=== PATIENT | male | born 1940 | race Caucasian/White ===

== ENCOUNTER 2019-11-10 16:11 | Inpatient (IN) | payer OTHER, SELFPAY ==
[2019-11-10] VITALS (41 sets, daily range): BP systolic 85–136; BP diastolic 52–101; PULSE 130–166; RESP 14–36; TEMP 36.1–36.8; O2SAT 91–100; BMI 24.7
--- NOTE | 2019-11-10 16:15 | DI.RAD.S_ITS ---
PROCEDURE: XR CHEST 1V INDICATIONS: chest pain TECHNIQUE: One view of the chest was acquired. COMPARISON: [facility], , CHEST 2 VIEW, 09/21/2011, 10:36. FINDINGS: Surgical changes and devices: None. Lungs and pleura: Increase opacity in right lower lung field is seen, concerning for developing right lower lobe infiltrate. Left lung is clear. No pleural effusions or pneumothorax. Mediastinum: Mediastinal contours appear normal. Heart size is enlarged. Bones and chest wall: No suspicious bony lesions. Overlying soft tissues appear unremarkable. IMPRESSION: Finding is concerning for developing small right lower lobe infiltrate. No pleural effusion or pneumothorax. Dictated by: Panchito Gunderson M.D. on 11/10/2019 at 16:50 Approved by: Panchito Gunderson M.D. on 11/10/2019 at 16:51
--- NOTE | 2019-11-10 16:20 | ED.ARRPALP ---
HPI - Arrhythmia/Palpitations General Chief Complaint: Arrhythmia/Palpitations Stated Complaint: AFIB Time Seen by Provider: 11/10/19 16:20 Source: patient Mode of arrival: Ambulatory Limitations: no limitations History of Present Illness HPI narrative: The patient is a 79-year-old male with history of atrial fibrillation presenting with shortness of breath and what appears to be AFib with RVR on the monitor. He said he has been feeling short of breath for last few days it seems to be mostly with activity. He has also noticed the last night or to that he is unable to lay flat in his bed. He denies any swelling in his legs he has no chest pain or heart patient's. He does take metoprolol twice a day an aspirin daily he has trying to transition to Eliquis but is resistant to Eliquis because it makes him bleed. Related Data Home Medications Medication Instructions Recorded Confirmed OMEPRAZOLE 20 mg PO QDAY #0 06/04/11 Allergies Allergy/AdvReac Type Severity Reaction Status Date / Time aspirin Allergy Verified 11/10/19 16:16 niacin Allergy Verified 11/10/19 16:16 Penicillins Allergy Verified 11/10/19 16:16 Review of Systems Review of Systems ROS Unobtainable: All systems reviewed & are unremarkable except as noted in HPI and below Constitutional Constitutional: Denies chills, Denies fever(s), Denies lethargy and Denies weakness Eyes Eyes: Denies change in vision, Denies eye discharge, Denies irritation and Denies loss of vision Cardiovascular Cardiovascular: Denies chest pain, Reports rapid heart rate, Denies claudication, Denies leg edema, Denies lightheadedness, Reports dyspnea and Reports dyspnea on exertion Respiratory Respiratory: Reports as per HPI, Denies cough, Reports dyspnea and Reports dyspnea on exertion Gastrointestinal Gastrointestinal: Denies abdominal pain, Denies change in bowel habits, Denies diarrhea, Denies nausea and Denies vomiting Musculoskeletal Musculoskeletal: Denies back pain, Denies deformity and Denies numbness Integumentary/Breasts Skin/Breast: Denies pruritus, Denies erythema, Denies rash and Denies wounds Neurologic Neurologic: Denies loss of vision, Denies numbness and Denies weakness Patient History Medical History Atrial fibrillation (Acute) Exam Initial Vital Signs Initial Vital Signs: Vital Signs Temperature 97.3 F L 11/10/19 16:16 Pulse Rate 155 H 11/10/19 16:16 Respiratory Rate 20 11/10/19 16:16 Blood Pressure 111/88 11/10/19 16:16 Pulse Oximetry 98 11/10/19 16:16 GENERAL: Alert male appears younger than stated age HEENT: Head atraumatic,EOMI, pupils reactive, face symmetric CARDIOVASCULAR: Tachycardic irregular RESPIRATORY: Breath sounds equal bilaterally, no wheezes rales or rhonchi. ABDOMEN: Soft, nontender. Normoactive bowel sounds all 4 quadrants. No guarding or rebound. EXTREMITIES: Normal range of motion, no clubbing or edema. Neurovascularly intact NEUROLOGICAL: Alert and oriented x4.Normal gait and speech. SKIN: Warm, dry, no laceration, no petechiae, no rashes or lesions. Course Orders Ordered: ED Orders 11/10/19 16:15 XR chest 1V Stat EKG-12 Lead Stat 11/10/19 16:21 BNP [NT-proBNP (BNP-Adult 18+)] Stat Complete Blood Count AUTO DIFF Stat Comprehensive Metabolic Panel Stat Lipase Stat Partial Thromboplastin Time Stat Prothrombin Time INR Stat Troponin & CK Cardiac Panel Stat 11/10/19 19:14 Partial Thromboplastin Time Stat 11/11/19 01:00 PTT [Partial Thromboplastin Time] Q6H 11/11/19 05:00 Hemoglobin and Hematocrit DAILY 11/11/19 07:00 PTT [Partial Thromboplastin Time] Q6H 11/11/19 13:00 PTT [Partial Thromboplastin Time] Q6H Amiodarone HCl/Dextrose (Nexterone) 360 mg in 200 mls @ 33.333 mls/hr IV NOW ONE; Protocol Stop: 11/11/19 01:15 Amiodarone HCl/Dextrose (Nexterone) 541 mg in 300.56 mls @ 16.7 mls/hr IV CONT CHERRY; Protocol Stop: 12/11/19 13:30 Discontinued Medications Digoxin (Lanoxin) 250 mcg IV NOW ONE Stop: 11/10/19 17:54 Last Admin: 11/10/19 18:04 Dose: 250 mcg Documented by: SAUL Diltiazem HCl (Cardizem) 10 mg IV NOW ONE Stop: 11/10/19 16:27 Last Admin: 11/10/19 16:52 Dose: 10 mg Documented by: ZACARIAS Furosemide (Lasix) 40 mg IV NOW ONE Stop: 11/10/19 17:23 Last Admin: 11/10/19 17:37 Dose: 40 mg Documented by: SAUL Heparin Sodium (Porcine) (Heparin) 5,700 unit 80 unit/kg (5700 unit) IV NOW ONE Stop: 11/10/19 18:57 Last Admin: 11/10/19 19:15 Dose: 5,700 unit Documented by: SAUL Amiodarone HCl/Dextrose (Nexterone) 150 mg in 100 mls @ 600 mls/hr IV NOW ONE; Protocol Stop: 11/10/19 19:03 Last Admin: 11/10/19 19:07 Dose: 200 mls/hr Documented by: SAUL Metoprolol Tartrate (Lopressor) 5 mg IV NOW ONE Stop: 11/10/19 16:58 Last Admin: 11/10/19 17:32 Dose: 5 mg Documented by: SAUL Consultations Consultation #1: Dr. Monge, cardiology updated patient's symptoms and test results this time recommends loading with amiodarone 150 mg and then drip for 24 hours along with a heparin drip patient is at risk for stroke. Time: 18:50 Consultation #2: Dr. Calix, updated on patient's symptoms test results cardiology recommendation agrees with admission to the ICU here at [facility] Time: 19:00 Vital Signs Vital signs: Vital Signs - 8 hr 11/10/19 16:16 11/10/19 16:25 11/10/19 16:30 Temperature 97.3 F L Pulse Rate 155 H 162 H 149 H Respiratory Rate 20 24 22 Blood Pressure 111/88 118/91 H Pulse Oximetry 98 98 96 11/10/19 16:45 11/10/19 16:52 11/10/19 16:53 Temperature Pulse Rate 160 H 166 H 164 H Respiratory Rate 26 H 26 H Blood Pressure 116/84 116/84 Pulse Oximetry 96 94 11/10/19 17:00 11/10/19 17:02 11/10/19 17:12 Temperature Pulse Rate 159 H 155 H 147 H Respiratory Rate 22 26 H 27 H Blood Pressure 91/61 89/68 L Pulse Oximetry 95 91 93 11/10/19 17:15 11/10/19 17:30 11/10/19 17:31 Temperature Pulse Rate 152 H 146 H 153 H Respiratory Rate 23 20 24 Blood Pressure 118/58 L Pulse Oximetry 92 94 92 11/10/19 17:42 11/10/19 17:45 11/10/19 17:50 Temperature Pulse Rate 146 H 145 H 135 H Respiratory Rate 24 26 H 24 Blood Pressure 110/69 92/62 Pulse Oximetry 93 95 93 11/10/19 18:00 11/10/19 18:04 11/10/19 18:10 Temperature Pulse Rate 144 H 145 H 141 H Respiratory Rate 23 30 H Blood Pressure 97/73 97/73 104/75 Pulse Oximetry 95 95 11/10/19 18:15 11/10/19 18:21 11/10/19 18:30 Temperature Pulse Rate 143 H 147 H 151 H Respiratory Rate 25 H 26 H 25 H Blood Pressure 103/82 107/87 Pulse Oximetry 95 96 96 11/10/19 18:42 11/10/19 18:45 11/10/19 18:51 Temperature Pulse Rate 159 H 154 H 154 H Respiratory Rate 20 27 H 26 H Blood Pressure 117/94 H 105/84 Pulse Oximetry 96 95 95 11/10/19 19:00 11/10/19 19:11 11/10/19 19:15 Temperature Pulse Rate 146 H 147 H 144 H Respiratory Rate 29 H 26 H 25 H Blood Pressure 116/88 136/92 H Pulse Oximetry 96 96 96 MDM - Arrhythmia/Palpitations Lab Data Attestation: I reviewed the patient's lab results. Result diagrams: 11/10/19 16:21 11/10/19 16:21 Labs: Lab Results 11/10/19 11/10/19 11/10/19 Range/Units 16:21 16:21 16:21 WBC 8.7 (4.5-11.0) X10^3/uL RBC 4.75 (4.5-5.9) X10^6/uL Hgb 15.4 (13.5-17.5) g/dL Hct 46.4 (41-53) % MCV 97.7 (80-100) fL MCH 32.3 (26-34) PG MCHC 33.1 (30-36) % RDW 12.7 (11.6-14.8) % Plt Count 263 (150-400) X10^3/uL Neut % (Auto) 66.8 (50-75) % Lymph % (Auto) 17.9 L (25-40) % [place] % (Auto) 11.2 (3-14) % Eos % (Auto) 2.7 (2-4) % Baso % (Auto) 1.4 (0-2) % Neut # (Auto) 5800 (6897-7901) /uL Lymph # (Auto) 1600 (4978-9819) /uL [place] # (Auto) 1000 H (0-900) /uL Eos # (Auto) 200 (0-450) /uL Baso # (Auto) 100 (0-100) /uL PT 12.2 (10.1-12.7) SECONDS INR 1.1 (0.9-1.3) APTT 31 (26.4-36.2) SECONDS Sodium 137 (137-145) mmol/L Potassium 4.1 (3.4-5.1) mmol/L Chloride 103 (98-107) mmol/L Carbon Dioxide 25 (22-32) mmol/L BUN 27 H (9-20) mg/dL Creatinine 1.08 (0.66-1.25) mg/dL Estimated GFR > 60.0 (>60) mL/min BUN/Creatinine Ratio 25.0 H (6-22) Glucose 88 (80-110) mg/dL Calcium 9.2 (8.4-10.2) mg/dL Total Bilirubin 0.7 (0.2-1.3) mg/dL AST 48 (17-59) IU/L ALT 78 H (<50) IU/L Alkaline Phosphatase 76 (38-126) U/L Total Creatine Kinase 96 (55-170) U/L CK-MB (CK-2) TNP CK-MB (CK-2) Rel Index TNP Troponin I < 0.012 (0.01-0.034) ng/mL NT-Pro-B Natriuret Pep 3690 H (<450) pg/mL Total Protein 7.0 (6.3-8.2) g/dL Albumin 4.1 (3.5-5.0) g/dL Globulin 2.9 (1.7-4.1) g/dL Albumin/Globulin Ratio 1.4 (1.0-2.8) Lipase 66 (23-300) U/L Urine Dip Bedside Urine Glucose Negative Bedside Urine Bilirubin - Negative Bedside Urine Ketone - Negative Urine Specific [place] 1.020 Bedside Urine Occult Blood - Negative Bedside Urine pH 6.0 Bedside Urine Protein - Negative Bedside Urine Urobilinogen - Negative Bedside Urine Nitrite - Negative Bedside Urine Leukocytes - Negative Esterase Imaging Data Chest x-ray: Radiologist's Impresson: PROCEDURE: XR CHEST 1V INDICATIONS: chest pain TECHNIQUE: One view of the chest was acquired. COMPARISON: [facility], CHEST 2 VIEW, 09/21/2011, 10:36. FINDINGS: Surgical changes and devices: None. Lungs and pleura: Increase opacity in right lower lung field is seen, concerning for developing right lower lobe infiltrate. Left lung is clear. No pleural effusions or pneumothorax. Mediastinum: Mediastinal contours appear normal. Heart size is enlarged. Bones and chest wall: No suspicious bony lesions. Overlying soft tissues appear unremarkable. IMPRESSION: Finding is concerning for developing small right lower lobe infiltrate. No pleural effusion or pneumothorax. Dictated by: Panchito Gunderson M.D. on 11/10/2019 at 16:50 Approved by: Panchito Gunderson M.D. on 11/10/2019 at 16:5 ECG Data Attestation: I personally reviewed and interpreted this ECG as follows: Prior ECG tracings: available for review Interpretation: Atrial fibrillation rate [address] changes previous EKG show sinus rhythm MDM Narrative Medical decision making narrative: The patient initially given Cardizem 10 mg of blood pressure dropped to systolic of 89 without improvement in the heart rate. With time blood pressure improved he was given 2.5 mg of Lopressor along with Lasix. BNP is quite elevated symptoms consistent with congestive heart failure. Blood pressure again dropped to systolic in the 90s heart rate initially response to 109 however quickly increases again. He is loaded with digoxin of 250 micro g of blood pressure is stable heart rate continues to be consistently in the 140s. Amiodarone loading dose has been started per cardiology recommendations. He has urinated with Lasix. Heart rate is use better and the 120s to 130s but still increases to the 140s after the amiodarone bolus. The amiodarone drip has been ordered. Patient overall appears great alert and oriented we have discussed anticoagulation options and risk of stroke. At this time he is more agreeable to take Eliquis. Critical Care Time Critical Care Time Critical Care Time: Yes Total Critical Care Time: 30 Attestation: The high probability of a clinically significant, sudden or life threatening deterioration of the [cardiovascular] system(s) required my full and direct attention, intervention and personal management. The aggregate critical care time was 30 minutes. This time is in addition to time spent performing reported procedures but includes the following: [x] Data Review and interpretation [x] Patient assessment and monitoring of vital signs [x] Documentation [x] Medication orders and management Discharge Plan Departure Patient Disposition: Admitted As Inpatient Clinical Impression: Atrial fibrillation with RVR Congestive heart failure Qualifiers: Heart failure type: unspecified Heart failure chronicity: unspecified Qualified Code(s): I50.9 - Heart failure, unspecified Referrals: Ryan Fragoso MD [Primary Care Provider] -
[2019-11-10 16:28] LABS: Add Manual Diff / Slide Review NO; Basophils Absolute Auto 100 /uL (0-100); Basophils Percent Auto 1.4 % (0-2); Eosinophils Absolute Auto 200 /uL (0-450); Eosinophils Percent Auto 2.7 % (2-4); Hematocrit 46.4 % (41-53); Hemoglobin 15.4 g/dL (13.5-17.5); Lymphocytes Absolute Auto 1600 /uL (1100-4500); Lymphocytes Percent Auto 17.9 % (25-40); Mean Corpuscular HGB Conc 33.1 % (30-36); Mean Corpuscular Hemoglobin 32.3 PG (26-34); Mean Corpuscular Volume 97.7 fL (80-100); Monocytes Absolute Auto 1000 /uL (0-900); Monocytes Percent Auto 11.2 % (3-14); Neutrophils Absolute Auto 5800 /uL (1500-7000); Neutrophils Percent Auto 66.8 % (50-75); Platelet Count 263 X10^3/uL (150-400); Red Blood Cell Count 4.75 X10^6/uL (4.5-5.9); Red Cell Distribution Width 12.7 % (11.6-14.8); White Blood Cell Count 8.7 X10^3/uL (4.5-11.0)
[2019-11-10 16:39] LABS: INR 1.1 (0.9-1.3); Prothrombin Time 12.2 SECONDS (10.1-12.7)
[2019-11-10 16:41] LABS: PTT Partial Thromboplastin Tim 31 SECONDS (26.4-36.2)
[2019-11-10 16:50] LABS: Alanine Aminotransferase 78 IU/L (<50); Albumin 4.1 g/dL (3.5-5.0); Albumin Globulin Ratio 1.4 (1.0-2.8); Alkaline Phosphatase 76 U/L (38-126); Aspartate Aminotransferase 48 IU/L (17-59); Bilirubin Total 0.7 mg/dL (0.2-1.3); Blood Urea Nitrogen 27 mg/dL (9-20); Calcium 9.2 mg/dL (8.4-10.2); Carbon Dioxide 25 mmol/L (22-32); Chloride 103 mmol/L (98-107); Creatine Kinase 96 U/L (55-170); Estimated Glomerular Filt Rate > 60.0 mL/min (>60); Globulin 2.9 g/dL (1.7-4.1); Glucose 88 mg/dL (80-110); HEMOLYSIS < 15 (0-50); Lipase 66 U/L (23-300); Potassium 4.1 mmol/L (3.4-5.1); Sodium 137 mmol/L (137-145)
[2019-11-10] MEDS: dilTIAZem 5 MG/ML SDV 10 MG IV (16:52)
[2019-11-10 17:02] LABS: NT-proBNP (BNP-Adult 18+) 3690 pg/mL (<450); Troponin I < 0.012 ng/mL (0.01-0.034)
[2019-11-10] MEDS: METOPROLOL TARTRATE 5 MG/5 ML INJ IV (17:32)
[2019-11-10] MEDS: FUROSEMIDE 40 MG/4 ML VIAL IV (17:37)
[2019-11-10] MEDS: DIGOXIN 500 MCG/2 ML AMPUL 250 MCG IV (18:04)
--- NOTE | 2019-11-10 18:17 | PC.NURSE ---
Metoprolol 5 mg IV to be given in 2 each [address] Cameron. First dose administered, second dose held for hypotension per Dr Cameron.
[2019-11-10] MEDS: AMIODARONE 150 MG/100 ML PIGGYBACK 200 MG IV (19:07)
[2019-11-10] MEDS: HEPARIN 5,000 UNIT/ML VIAL 5700 UNIT IV (19:15)
[2019-11-10 19:50] LABS: PTT Partial Thromboplastin Tim 30 SECONDS (26.4-36.2)
[2019-11-10] MEDS: AMIODARONE 541 MG/300.56 ML PIGGYBACK 33.3 MG IV (19:50)
[2019-11-10] MEDS: HEPARIN DRIP 25,000 UNIT/500 ML IV.SOLN 20 UNIT IV (19:56)
[2019-11-10] MEDS: AMIODARONE 360 MG/200 ML PIGGYBACK 33.33 MG IV (19:58)
[2019-11-10 21:07] LABS: COVID19 -Nasal RAPID Negative (Negative)
--- NOTE | 2019-11-10 21:45 | P.HP_ITS ---
History of Present Illness History of Present Illness Date Patient Seen: 11/10/19 Time Patient Seen: 21:45 Date of Onset of Symptoms: 11/10/19 Chief complaint: AFIB Narrative: Patient is a 79-year-old who I am cross covering for Dr. Kenney who she has seen in clinic. No major issues up until about 4-5 days ago. Last week he built and extensive stair we going down to his beach. Caring would and feeling quite well. He has been playing golf and walking on a consistent basis at least 2 times a week. Has had no issues whatsoever. He states that he checks his blood pressure and his pulse in the morning every morning and he is been stable for the last month. He has had no issues he feels since May until 3 days ago when he started having increasing shortness of breath. Really during the day he has been feeling well. He mowed the lawn in these 3 days. He has been doing work around the house. His biggest issue is when he lays down. Is since he lays down he starts getting significantly short of breath. He has been having to get up in the middle the night and sleep sitting up. He has not had any chest pain. He really has no idea that his heart rate is been increased period and did know that was happening until he showed up in the emergency room was told his heart rate was elevated. He never felt it whatsoever. Did state that he felt like his heart rate was in the 50s this morning. Apparently he has been taking Eliquis on a consistent basis which he thinks is the lowest amount period but then he reported to the Emergency DrMita that he was not taking it only taking aspirin. Dr. Kenney does not have him taking that in the clinic. Patient does not take most of the medicines that he is prescribed except for occasional Ambien metoprolol and an antihistamine. Patient otherwise has been feeling well. He has been a little itchy apparently ends had a rash for a few weeks and was started on antihistamine recently which to he does not feels made a difference and he feels maybe that it caused a rash. He has not had any chest pain. No dyspnea with exertion period and otherwise is felt quite well. He has had no fevers or chills. No headaches. No visual symptoms. If it was not for his symptoms at night he really would not feel any different than he usually does. He is not sure if he has gained any weight. He has had no edema. He has had no urinary changes cough or other change. Patient has a history of atrial fibrillation which is apparently been longstanding. Apparently he was to have a catheter in June because of a questionable abnormality on his treadmill which he had in May but due to [place] it he was canceled. Has felt great since that time. 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 Otherwise no change or complaint. Patient has been having some muscle cramps but otherwise has felt well. Past medical history is significant for atrial fibrillation, hyperlipidemia, aortic stenosis, Past surgical history: Prostatectomy 2005, cataract right 2008, retinal detachment left 2010, right shoulder surgery for 2010, right hand surgery 116, corneal transplant left 06/24. Social history. 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 Nonsmoker. Family history. Father AAA, mother no major issues, Patient History Medical History Atrial fibrillation (Acute) Family & Social History Social History: household members none Prior Living Arrangements House Safety & Behavioral: Feels Safe in Current Yes Environment Been Physically Hurt or No Threatened By a Person Suicidal Ideation Description None Suicide Plan Description No Plan Tobacco & Substance use: Smoking Status Never smoker alcohol intake frequency holiday/special occasion Substance Use Type does not use Meds Home Medications and Allergies Home Medications Medication Instructions Recorded Confirmed Type OMEPRAZOLE 20 mg PO QDAY #0 06/04/11 History Allergies Allergy/AdvReac Type Severity Reaction Status Date / Time aspirin Allergy Verified 11/10/19 16:16 niacin Allergy Verified 11/10/19 16:16 Penicillins Allergy Verified 11/10/19 16:16 Review of Systems Review of Systems ROS: Yes All systems reviewed with the patient and are negative except as otherwise documented Exam Vital Signs (past 8 hours): - 11/10/19 16:16 11/10/19 16:25 11/10/19 16:30 Temperature 97.3 F L Pulse Rate 155 H 162 H 149 H Respiratory Rate 20 24 22 Blood Pressure 111/88 118/91 H Pulse Oximetry 98 98 96 11/10/19 16:45 11/10/19 16:52 11/10/19 16:53 Temperature Pulse Rate 160 H 166 H 164 H Respiratory Rate 26 H 26 H Blood Pressure 116/84 116/84 Pulse Oximetry 96 94 11/10/19 17:00 11/10/19 17:02 11/10/19 17:12 Temperature Pulse Rate 159 H 155 H 147 H Respiratory Rate 22 26 H 27 H Blood Pressure 91/61 89/68 L Pulse Oximetry 95 91 93 11/10/19 17:15 11/10/19 17:30 11/10/19 17:31 Temperature Pulse Rate 152 H 146 H 153 H Respiratory Rate 23 20 24 Blood Pressure 118/58 L Pulse Oximetry 92 94 92 11/10/19 17:42 11/10/19 17:45 11/10/19 17:50 Temperature Pulse Rate 146 H 145 H 135 H Respiratory Rate 24 26 H 24 Blood Pressure 110/69 92/62 Pulse Oximetry 93 95 93 11/10/19 18:00 11/10/19 18:04 11/10/19 18:10 Temperature Pulse Rate 144 H 145 H 141 H Respiratory Rate 23 30 H Blood Pressure 97/73 97/73 104/75 Pulse Oximetry 95 95 11/10/19 18:15 11/10/19 18:21 11/10/19 18:30 Temperature Pulse Rate 143 H 147 H 151 H Respiratory Rate 25 H 26 H 25 H Blood Pressure 103/82 107/87 Pulse Oximetry 95 96 96 11/10/19 18:42 11/10/19 18:45 11/10/19 18:51 Temperature Pulse Rate 159 H 154 H 154 H Respiratory Rate 20 27 H 26 H Blood Pressure 117/94 H 105/84 Pulse Oximetry 96 95 95 11/10/19 19:00 11/10/19 19:11 11/10/19 19:15 Temperature Pulse Rate 146 H 147 H 144 H Respiratory Rate 29 H 26 H 25 H Blood Pressure 116/88 136/92 H Pulse Oximetry 96 96 96 11/10/19 19:30 11/10/19 19:31 11/10/19 19:41 Temperature Pulse Rate 142 H 137 H 137 H Respiratory Rate 36 H 27 H 29 H Blood Pressure 117/101 H 102/87 Pulse Oximetry 96 97 95 11/10/19 19:45 11/10/19 19:51 11/10/19 20:00 Temperature Pulse Rate 130 H 139 H 141 H Respiratory Rate 28 H 24 27 H Blood Pressure 85/53 L 113/75 Pulse Oximetry 96 93 96 11/10/19 20:15 11/10/19 20:50 Temperature 97 F L Pulse Rate 143 H 142 H Respiratory Rate 23 18 Blood Pressure 106/68 Pulse Oximetry 93 100 Oxygen Delivery Method Room Air Narrative Exam Narrative: Alert interactive smiling elderly male in no acute distress. Mucous membranes moist. Eyes PERRLA. Neck supple without adenopathy JVD or bruits. Lungs are clear. Heart irregular rhythm rate 130. No murmurs that I can detect. Abdomen is soft positive bowel sounds nontender. Extremities w ithout cyanosis clubbing or edema. Pulses seemed good in the lower extremities they are warm. Neurologic exam shows reflexes motor and sensation all intact. Psychologically interactive appropriate and normal Objective Labs Result Diagrams: 11/10/19 16:21 11/10/19 16:21 Labs: Laboratory Results - last 24 hr 11/10/19 11/10/19 11/10/19 16:21 16:21 16:21 WBC 8.7 RBC 4.75 Hgb 15.4 Hct 46.4 MCV 97.7 MCH 32.3 MCHC 33.1 RDW 12.7 Plt Count 263 Neut % (Auto) 66.8 Lymph % (Auto) 17.9 L [place] % (Auto) 11.2 Eos % (Auto) 2.7 Baso % (Auto) 1.4 Neut # (Auto) 5800 Lymph # (Auto) 1600 [place] # (Auto) 1000 H Eos # (Auto) 200 Baso # (Auto) 100 PT 12.2 INR 1.1 APTT 31 Sodium 137 Potassium 4.1 Chloride 103 Carbon Dioxide 25 BUN 27 H Creatinine 1.08 Estimated GFR > 60.0 BUN/Creatinine Ratio 25.0 H Glucose 88 Calcium 9.2 Total Bilirubin 0.7 AST 48 ALT 78 H Alkaline Phosphatase 76 Total Creatine Kinase 96 CK-MB (CK-2) TNP CK-MB (CK-2) Rel Index TNP Troponin I < 0.012 NT-Pro-B Natriuret Pep 3690 H Total Protein 7.0 Albumin 4.1 Globulin 2.9 Albumin/Globulin Ratio 1.4 Lipase 66 COVID-19 PCR 11/10/19 11/10/19 19:14 20:00 WBC RBC Hgb Hct MCV MCH MCHC RDW Plt Count Neut % (Auto) Lymph % (Auto) [place] % (Auto) Eos % (Auto) Baso % (Auto) Neut # (Auto) Lymph # (Auto) [place] # (Auto) Eos # (Auto) Baso # (Auto) PT INR APTT 30 Sodium Potassium Chloride Carbon Dioxide BUN Creatinine Estimated GFR BUN/Creatinine Ratio Glucose Calcium Total Bilirubin AST ALT Alkaline Phosphatase Total Creatine Kinase CK-MB (CK-2) CK-MB (CK-2) Rel Index Troponin I NT-Pro-B Natriuret Pep Total Protein Albumin Globulin Albumin/Globulin Ratio Lipase COVID-19 PCR Negative Assessment & Plan Assessment & Plan narrative: Congestive heart failure left heart suspect secondary to rate from atrial fibrillation. Hopefully will resolve as heart rate improves. Patient was given Lasix in the ER and remarkably feeling better since that time. Can now lay down. Feeling like his normal self. Will repeat Lasix in a.m. IV. Will need to re-evaluate for possible at the go. Probably will need Cardiology consult. Have been having difficulty getting heart rate in control. Patient understands. Will follow in a.m.. Atrial fibrillation. With RVR. No other significant abnormality. No evidence of infection etiology in causes issue. No evidence of ischemic disease on EKG. EKG showed AFib with RVR right bundle-branch block but no definitive ischemic disease. He is having no chest pain. And at this point I think he seems to be tolerating except for his congestive heart failure aspect which is now improved. Unclear whether patient has been taking Eliquis done a consistent basis he certainly feels like he has been and I tend to believe him but we do not have any documentation on dose. He is currently on amiodarone because Cardizem and beta-ijeoma structures blood pressure. Hopefully this will control rate. Logistics Analytics Manager has been contacted. Depending on how things go will probably need consult in the morning. If not improved will need to consider cardioversion although it is unclear whether he has been effectively anticoagulated. He is now on heparin. Overall otherwise stable. Re-evaluate in a.m.. Leg cramps. Etiology somewhat unclear. Could be multiple causes will check magnesium and calcium. Otherwise electrolytes look unremarkable. Will give anti a spasm medicine depending on results. History of abnormal chest x-ray. Question of right lower lobe infiltrate will repeat chest x-ray tomorrow. Certainly has no signs or symptoms of pneumonia. [place] id pending. Suspect will be negative. But will follow through and continue parameters until negative. GI prophylaxis will continue on pantoprazole for now. Code status. Patient would like full code. Disposition. Wall depending on how quickly and rapidly we get this controlled. He otherwise looks good. Will follow.
--- NOTE | 2019-11-10 23:33 | PC.NURSE ---
Addendum entered by Bettina Cano R.N. 11/11/19 02:36: 0230 Heparin gtt restarted at 17mL/hr (26316 units/hr), pt resting in bed with eyes closed, call light within reach, no further needs at this time. Will continue to treat and monitor as ordered until report is giving to on-coming Nurse Essie, with no further pt contact at that time. Addendum entered by Bettina Cano R.N. 11/11/19 01:40: Critical value PTT 113, Heparin gtt placed on hold for 60 minutes per protocol, resume Heparin gtt at 17 ml/hr (94699 units/hr). Next PTT to be drawn at 0700. No s/s of bleeding, pt tolerating gtt. Bed low and locked, call light within reach, will continue to monitor. Original Note: 2049 Pt arrived via gurney from ED, A/Ox4 Heart rate at 145, AFib with RVR pt notes no symptoms. Amiodarone gtt infusing at 33.3mL/hr started at 1950, Heparin gtt infusing at 20 units/hr for at PTT of 30. Dr. Calix at bedside, new orders placed. Pt oriented to room and call light system, food provided (heart healthy diet), urinal provided pt educated that at this time he will not be able to get out of bed to go to the restroom, pt states he understands. Bed low and locked, call light within reach, will continue to monitor.
[2019-11-11] VITALS (23 sets, daily range): BP systolic 87–140; BP diastolic 60–93; PULSE 115–144; RESP 10–29; TEMP 36.2–36.5; O2SAT 94–99; BMI 23.5
[2019-11-11] MEDS: AMIODARONE 541 MG/300.56 ML PIGGYBACK 16.7 MG IV (01:17)
[2019-11-11] MEDS: ZOLPIDEM 5 MG TABLET PO (01:23)
[2019-11-11 01:27] LABS: PTT Partial Thromboplastin Tim 113 SECONDS (26.4-36.2)
[2019-11-11 06:38] LABS: Add Manual Diff / Slide Review NO; Basophils Absolute Auto 100 /uL (0-100); Basophils Percent Auto 1.3 % (0-2); Eosinophils Absolute Auto 400 /uL (0-450); Eosinophils Percent Auto 4.5 % (2-4); Hemoglobin 14.7 g/dL (13.5-17.5); Lymphocytes Absolute Auto 2000 /uL (1100-4500); Lymphocytes Percent Auto 24.1 % (25-40); Mean Corpuscular HGB Conc 33.4 % (30-36); Mean Corpuscular Hemoglobin 32.4 PG (26-34); Mean Corpuscular Volume 96.9 fL (80-100); Monocytes Absolute Auto 800 /uL (0-900); Monocytes Percent Auto 9.7 % (3-14); Neutrophils Absolute Auto 4900 /uL (1500-7000); Neutrophils Percent Auto 60.4 % (50-75); Platelet Count 211 X10^3/uL (150-400); Red Blood Cell Count 4.53 X10^6/uL (4.5-5.9); Red Cell Distribution Width 12.7 % (11.6-14.8); White Blood Cell Count 8.2 X10^3/uL (4.5-11.0)
[2019-11-11 06:44] LABS: BUN Creatinine Ratio 20.5 (6-22); Blood Urea Nitrogen 25 mg/dL (9-20); Calcium 8.9 mg/dL (8.4-10.2); Carbon Dioxide 25 mmol/L (22-32); Chloride 102 mmol/L (98-107); Estimated Glomerular Filt Rate 57.4 mL/min (>60); Glucose 107 mg/dL (80-110); HEMOLYSIS < 15 (0-50); Sodium 134 mmol/L (137-145)
[2019-11-11 06:45] LABS: Magnesium 2.3 mg/dL (1.6-2.3)
[2019-11-11 06:53] LABS: NT-proBNP (BNP-Adult 18+) 4140 pg/mL (<450)
[2019-11-11 06:56] LABS: PTT Partial Thromboplastin Tim 62 SECONDS (26.4-36.2)
--- NOTE | 2019-11-11 07:52 | PM.PN.1 ---
Subjective Subjective Date Patient Seen: 11/11/19 Time Patient Seen: 07:53 Exam Vital Signs (past 8 hours): - 11/11/19 00:00 11/11/19 00:03 11/11/19 00:15 Temperature 97.2 F L Pulse Rate 142 H 133 H 137 H Respiratory Rate 24 17 28 H Blood Pressure 114/91 H 114/91 H Pulse Oximetry 99 11/11/19 00:30 11/11/19 00:45 11/11/19 01:01 Temperature Pulse Rate 133 H 134 H 116 H Respiratory Rate 29 H 25 H 27 H Blood Pressure 115/74 Pulse Oximetry 11/11/19 02:00 11/11/19 03:00 11/11/19 04:07 Temperature 97.2 F L Pulse Rate 144 H 115 H 132 H Respiratory Rate 17 26 H 16 Blood Pressure 140/92 H 99/72 121/93 H Pulse Oximetry 98 11/11/19 05:42 11/11/19 07:00 Temperature 97.2 F L Pulse Rate 120 H 120 H Respiratory Rate 10 L 20 Blood Pressure 126/67 118/65 Pulse Oximetry 94 Oxygen Delivery Method Room Air Oxygen Flow Rate 0 Objective Labs Result Diagrams: 11/11/19 06:10 11/11/19 06:10 Labs: Laboratory Results - last 24 hr 11/10/19 11/10/19 11/10/19 16:21 16:21 16:21 WBC 8.7 RBC 4.75 Hgb 15.4 Hct 46.4 MCV 97.7 MCH 32.3 MCHC 33.1 RDW 12.7 Plt Count 263 Neut % (Auto) 66.8 Lymph % (Auto) 17.9 L [place] % (Auto) 11.2 Eos % (Auto) 2.7 Baso % (Auto) 1.4 Neut # (Auto) 5800 Lymph # (Auto) 1600 [place] # (Auto) 1000 H Eos # (Auto) 200 Baso # (Auto) 100 PT 12.2 INR 1.1 APTT 31 Sodium 137 Potassium 4.1 Chloride 103 Carbon Dioxide 25 BUN 27 H Creatinine 1.08 Estimated GFR > 60.0 BUN/Creatinine Ratio 25.0 H Glucose 88 Calcium 9.2 Magnesium Total Bilirubin 0.7 AST 48 ALT 78 H Alkaline Phosphatase 76 Total Creatine Kinase 96 CK-MB (CK-2) TNP CK-MB (CK-2) Rel Index TNP Troponin I < 0.012 NT-Pro-B Natriuret Pep 3690 H Total Protein 7.0 Albumin 4.1 Globulin 2.9 Albumin/Globulin Ratio 1.4 Lipase 66 Nasal Screen MRSA (PCR) COVID-19 PCR 11/10/19 11/10/19 11/10/19 19:14 20:00 22:11 WBC RBC Hgb Hct MCV MCH MCHC RDW Plt Count Neut % (Auto) Lymph % (Auto) [place] % (Auto) Eos % (Auto) Baso % (Auto) Neut # (Auto) Lymph # (Auto) [place] # (Auto) Eos # (Auto) Baso # (Auto) PT INR APTT 30 Sodium Potassium Chloride Carbon Dioxide BUN Creatinine Estimated GFR BUN/Creatinine Ratio Glucose Calcium Magnesium Total Bilirubin AST ALT Alkaline Phosphatase Total Creatine Kinase CK-MB (CK-2) CK-MB (CK-2) Rel Index Troponin I NT-Pro-B Natriuret Pep Total Protein Albumin Globulin Albumin/Globulin Ratio Lipase Nasal Screen MRSA (PCR) Negative for mrsa COVID-19 PCR Negative 11/11/19 11/11/19 11/11/19 00:55 06:10 06:10 WBC RBC Hgb Hct MCV MCH MCHC RDW Plt Count Neut % (Auto) Lymph % (Auto) [place] % (Auto) Eos % (Auto) Baso % (Auto) Neut # (Auto) Lymph # (Auto) [place] # (Auto) Eos # (Auto) Baso # (Auto) PT INR APTT 113 H* D 62 H D Sodium Potassium Chloride Carbon Dioxide BUN Creatinine Estimated GFR BUN/Creatinine Ratio Glucose Calcium Magnesium 2.3 Total Bilirubin AST ALT Alkaline Phosphatase Total Creatine Kinase CK-MB (CK-2) CK-MB (CK-2) Rel Index Troponin I NT-Pro-B Natriuret Pep Total Protein Albumin Globulin Albumin/Globulin Ratio Lipase Nasal Screen MRSA (PCR) COVID-19 PCR 11/11/19 11/11/19 11/11/19 06:10 06:10 06:10 WBC 8.2 RBC 4.53 Hgb 14.7 Hct 44.0 MCV 96.9 MCH 32.4 MCHC 33.4 RDW 12.7 Plt Count 211 Neut % (Auto) 60.4 Lymph % (Auto) 24.1 L [place] % (Auto) 9.7 Eos % (Auto) 4.5 H Baso % (Auto) 1.3 Neut # (Auto) 4900 Lymph # (Auto) 2000 [place] # (Auto) 800 Eos # (Auto) 400 Baso # (Auto) 100 PT INR APTT Sodium 134 L Potassium 4.0 Chloride 102 Carbon Dioxide 25 BUN 25 H Creatinine 1.22 Estimated GFR 57.4 L BUN/Creatinine Ratio 20.5 Glucose 107 Calcium 8.9 8.9 Magnesium Total Bilirubin AST ALT Alkaline Phosphatase Total Creatine Kinase CK-MB (CK-2) CK-MB (CK-2) Rel Index Troponin I NT-Pro-B Natriuret Pep 4140 H Total Protein Albumin Globulin Albumin/Globulin Ratio Lipase Nasal Screen MRSA (PCR) COVID-19 PCR
[2019-11-11] MEDS: PANTOPRAZOLE 40 MG VIAL IV (08:40)
[2019-11-11] MEDS: FUROSEMIDE 20 MG/2 ML VIAL IV (08:40)
--- NOTE | 2019-11-11 09:43 | PC.NURSE ---
Addendum entered by Essie Krishna R.N. 11/11/19 14:53: Call to Dr. Kenney's office at [address] Kenney on her way up to the floor to see pt. Awaiting arrival. Addendum entered by Essie Krishna R.N. 11/11/19 13:53: Received call back from Dr. Kenney at 1345 and updated on HR (120s to 140). Order received to increase amiodarone gtt to 50 mg/hr which was done at 1350. Instructions received to call back in one hour if no improvement in HR results. Pt updated. Addendum entered by Essie Krishna R.N. 11/11/19 13:37: Call placed to Dr. Kenney's office at 1245 to update on HR (no change). Awaiting call back at this time. Addendum entered by Essie Krishna R.N. 11/11/19 11:46: Dr. Kenney called regarding pt's persistent HR of 120-130s with brief increases up to the 150/160s. Order received to increase amiodarone gtt to 40 mg/hr (done at 1140) and to reassess HR this afternoon. Assisted pt to comfortable position in bed. Call light within reach. Denies any needs at this time. Original Note: Day Shift Note Took over care of pt at 0300. Amiodarone gtt infusing at 16.7 ml/hr. Heparin gtt at 850 units/hr (17 ml/hr) per protocol. Afib RVR in the 120-130s all night with occasional increases as high as 160 both at rest and with activity. Alert and oriented x3. Pt denies chest pain, denies shortness of breath. SpO2 95-98% on RA. Lungs are clear but decreased bilaterally. Using urinal at side of bed. Dr. Kenney rounded on pt this AM and HR/BP trend reviewed - no new orders at this time. Plans to consult cardiology and await their recommendations. Call light within reach, using appropriately to make needs known.
[2019-11-11] MEDS: AMIODARONE 360 MG/200 ML PIGGYBACK 22.2 MG IV (13:51)
[2019-11-11 14:06] LABS: PTT Partial Thromboplastin Tim 58 SECONDS (26.4-36.2)
--- NOTE | 2019-11-11 14:22 | PM.DS.1 ---
History of Present Illness History of Present Illness Date Patient Seen: 11/11/19 Time Patient Seen: 08:45 Chief complaint: AFIB Narrative: Patient is a 79-year-old who I am cross covering for Dr. Kenney who she has seen in clinic. No major issues up until about 4-5 days ago. Last week he built and extensive stair we going [place] to [place] beach. Caring would and feeling quite well. He has been playing golf and walking on a consistent basis at least 2 times a week. Has had no issues whatsoever. He states that he checks his blood pressure and his pulse in the morning every morning and he is been stable for the last month. He has had no issues he feels since May until 3 days ago when he started having increasing shortness of breath. Really during the day he has been feeling well. He mowed the lawn in these 3 days. He has been doing work around the house. His biggest issue is when he lays down. Is since he lays down he starts getting significantly short of breath. He has been having to get up in the middle the night and sleep sitting up. He has not had any chest pain. He really has no idea that his heart rate is been increased period and did know that was happening until he showed up in the emergency room was told his heart rate was elevated. He never felt it whatsoever. Did state that he felt like his heart rate was in the 50s this morning. Apparently he has been taking Eliquis on a consistent basis which he thinks is the lowest amount period but then he reported to the Emergency that he was not taking it only taking aspirin. Dr. Kenney does not have him taking that in the clinic. Patient does not take most of the medicines that he is prescribed except for occasional Ambien metoprolol and an antihistamine. Patient otherwise has been feeling well. He has been a little itchy apparently ends had a rash for a few weeks and was started on antihistamine recently which to he does not feels made a difference and he feels maybe that it caused a rash. He has not had any chest pain. No dyspnea with exertion period and otherwise is felt quite well. He has had no fevers or chills. No headaches. No visual symptoms. If it was not for his symptoms at night he really would not feel any different than he usually does. He is not sure if he has gained any weight. He has had no edema. He has had no urinary changes cough or other change. Patient has a history of atrial fibrillation which is apparently been longstanding. Apparently he was to have a catheter in June because of a questionable abnormality on his treadmill which he had in May but due to [place] it he was canceled. Has felt great since that time. He has not seen his beet end supervisor since then. Otherwise no change or complaint. Patient has been having some muscle cramps but otherwise has felt well. Past medical history is significant for atrial fibrillation, hyperlipidemia, aortic stenosis, Past surgical history: Prostatectomy 2005, cataract right 2008, retinal detachment left 2010, right shoulder surgery for 2010, right hand surgery 116, corneal transplant left 06/24. Social history. 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 Nonsmoker. Family history. Father AAA, mother no major issues, Discharge Providers Provider Date of admission: 11/10/19 19:56 Discharge Date: 11/11/19 Primary care physician: Leila Kenney MD Consults: Dr. Perrin, cardiology Discharge provider: Leila Kenney MD Summary Hospital Course Discharge Diagnosis: 1. Paroxysmal atrial fibrillation with RVR 2. CHF, etiology unclear, suspect with preserved ejection fraction 3. Possible right lobe infiltrate 4. Aortic stenosis, mild, chronic 5. PVCs, chronic 6. History of abnormal exercise myocardial perfusion study 6. Hyperlipidemia, chronic 7. Chronic pain syndrome 8. Depression/anxiety, chronic 9. History of prostate cancer Hospital Course: Patient was admitted from the ED last night secondary to dyspnea x1 week. He was found to be in atrial fibrillation with RVR. BtNP 3690, he was given 40 mg of IV Lasix with improvement of dyspnea. Attempted chemical cardioversion in the ER was unsuccessful with 10 mg of Cardizem and 20 mg of digoxin. In fact, patient had a reduction in systolic blood pressure into the 80s with these medications and no control of his heart rate. Dr. Nation, on-call beet end supervisor was consulted and he recommended a bolus of amiodarone followed by a drip overnight. He was also placed on heparin drip. Unfortunately, this morning he continued in atrial fibrillation with an uncontrolled rate into the 130s and 140s despite an ever increasing dose of amiodarone from 30 milligrams/hour to now 50 milligrams/hour. There was some confusion whether or not he has been on Eliquis as an outpatient but he does say that he has been taking it, 5 mg p.o. b.i.d.. This was started by cardiology approximately [address] Perrin, patient's consulting beet end supervisor, was contacted for care coordination and he advised cardioversion as he is failing medical therapy. In addition, patient had an abnormal exercise myocardial perfusion study and is due for cardiac catheterization. Both procedures can be completed at the same time at [facility]. His catheterization was previously put on hold secondary to coronavirus. Notably, patient is COVID negative. Dr. Lynch[facility] in transfer of care; Dr. Perrin, cardiology consulting. Vitals signs at time of discharge include a blood pressure of 116/87, MAP 99, and heart rate of 143. Status at Discharge Overall status at discharge: patient is not back to baseline Exam Vital Signs (past 8 hours): - 11/11/19 07:00 11/11/19 08:00 11/11/19 09:00 Temperature 97.2 F L Pulse Rate 120 H 137 H 132 H Respiratory Rate 20 21 26 H Blood Pressure 118/65 96/70 Pulse Oximetry 94 11/11/19 09:01 11/11/19 10:00 11/11/19 11:05 Temperature Pulse Rate 137 H 131 H 128 H Respiratory Rate 24 23 27 H Blood Pressure 111/66 117/71 92/76 Pulse Oximetry 11/11/19 12:04 11/11/19 12:30 Temperature Pulse Rate 126 H 131 H Respiratory Rate 24 25 H Blood Pressure 87/60 L 105/69 Pulse Oximetry Oxygen Delivery Method Room Air Oxygen Flow Rate 0 Narrative Exam Narrative: GENERAL: Alert and oriented, appearing stated age and in no acute distress. HEENT: Head normocephalic/atraumatic. Pupils equal, round, and reactive to light and accomodation. Extraocular muscles intact. Tympanic membranes clear. Nasal mucosa moist, septum midline. Oral mucosa moist, no lesions. Neck soft and supple, no lymphadenopathy. LUNGS: Diminished inspiratory effort with mild bibasilar rales. CV: Irregularly irregular with tachycardia, 2/5 systolic murmur heard best at LUSB, no rubs or gallops. ABDOMEN: Soft, non-tender, non-distended, no organomegaly. Positive bowel sounds. EXTREMITIES: No clubbing, cyanosis, or edema. NEURO: Cranial nerves II through XII grossly intact, no focal deficits. PSYCH: Alert and oriented x 3. SKIN: No concerning lesions. Objective Labs Result Diagrams: 11/11/19 06:10 11/11/19 06:10 Labs: Laboratory Results - last 24 hr 11/10/19 11/10/19 11/10/19 16:21 16:21 16:21 WBC 8.7 RBC 4.75 Hgb 15.4 Hct 46.4 MCV 97.7 MCH 32.3 MCHC 33.1 RDW 12.7 Plt Count 263 Neut % (Auto) 66.8 Lymph % (Auto) 17.9 L [place] % (Auto) 11.2 Eos % (Auto) 2.7 Baso % (Auto) 1.4 Neut # (Auto) 5800 Lymph # (Auto) 1600 [place] # (Auto) 1000 H Eos # (Auto) 200 Baso # (Auto) 100 PT 12.2 INR 1.1 APTT 31 Sodium 137 Potassium 4.1 Chloride 103 Carbon Dioxide 25 BUN 27 H Creatinine 1.08 Estimated GFR > 60.0 BUN/Creatinine Ratio 25.0 H Glucose 88 Calcium 9.2 Magnesium Total Bilirubin 0.7 AST 48 ALT 78 H Alkaline Phosphatase 76 Total Creatine Kinase 96 CK-MB (CK-2) TNP CK-MB (CK-2) Rel Index TNP Troponin I < 0.012 NT-Pro-B Natriuret Pep 3690 H Total Protein 7.0 Albumin 4.1 Globulin 2.9 Albumin/Globulin Ratio 1.4 Lipase 66 Nasal Screen MRSA (PCR) COVID-19 PCR 11/10/19 11/10/19 11/10/19 19:14 20:00 22:11 WBC RBC Hgb Hct MCV MCH MCHC RDW Plt Count Neut % (Auto) Lymph % (Auto) [place] % (Auto) Eos % (Auto) Baso % (Auto) Neut # (Auto) Lymph # (Auto) [place] # (Auto) Eos # (Auto) Baso # (Auto) PT INR APTT 30 Sodium Potassium Chloride Carbon Dioxide BUN Creatinine Estimated GFR BUN/Creatinine Ratio Glucose Calcium Magnesium Total Bilirubin AST ALT Alkaline Phosphatase Total Creatine Kinase CK-MB (CK-2) CK-MB (CK-2) Rel Index Troponin I NT-Pro-B Natriuret Pep Total Protein Albumin Globulin Albumin/Globulin Ratio Lipase Nasal Screen MRSA (PCR) Negative for mrsa COVID-19 PCR Negative 11/11/19 11/11/19 11/11/19 00:55 06:10 06:10 WBC RBC Hgb Hct MCV MCH MCHC RDW Plt Count Neut % (Auto) Lymph % (Auto) [place] % (Auto) Eos % (Auto) Baso % (Auto) Neut # (Auto) Lymph # (Auto) [place] # (Auto) Eos # (Auto) Baso # (Auto) PT INR APTT 113 H* D 62 H D Sodium Potassium Chloride Carbon Dioxide BUN Creatinine Estimated GFR BUN/Creatinine Ratio Glucose Calcium Magnesium 2.3 Total Bilirubin AST ALT Alkaline Phosphatase Total Creatine Kinase CK-MB (CK-2) CK-MB (CK-2) Rel Index Troponin I NT-Pro-B Natriuret Pep Total Protein Albumin Globulin Albumin/Globulin Ratio Lipase Nasal Screen MRSA (PCR) COVID-19 PCR 11/11/19 11/11/19 11/11/19 06:10 06:10 06:10 WBC 8.2 RBC 4.53 Hgb 14.7 Hct 44.0 MCV 96.9 MCH 32.4 MCHC 33.4 RDW 12.7 Plt Count 211 Neut % (Auto) 60.4 Lymph % (Auto) 24.1 L [place] % (Auto) 9.7 Eos % (Auto) 4.5 H Baso % (Auto) 1.3 Neut # (Auto) 4900 Lymph # (Auto) 2000 [place] # (Auto) 800 Eos # (Auto) 400 Baso # (Auto) 100 PT INR APTT Sodium 134 L Potassium 4.0 Chloride 102 Carbon Dioxide 25 BUN 25 H Creatinine 1.22 Estimated GFR 57.4 L BUN/Creatinine Ratio 20.5 Glucose 107 Calcium 8.9 8.9 Magnesium Total Bilirubin AST ALT Alkaline Phosphatase Total Creatine Kinase CK-MB (CK-2) CK-MB (CK-2) Rel Index Troponin I NT-Pro-B Natriuret Pep 4140 H Total Protein Albumin Globulin Albumin/Globulin Ratio Lipase Nasal Screen MRSA (PCR) COVID-19 PCR 11/11/19 13:47 WBC RBC Hgb Hct MCV MCH MCHC RDW Plt Count Neut % (Auto) Lymph % (Auto) [place] % (Auto) Eos % (Auto) Baso % (Auto) Neut # (Auto) Lymph # (Auto) [place] # (Auto) Eos # (Auto) Baso # (Auto) PT INR APTT 58 H D Sodium Potassium Chloride Carbon Dioxide BUN Creatinine Estimated GFR BUN/Creatinine Ratio Glucose Calcium Magnesium Total Bilirubin AST ALT Alkaline Phosphatase Total Creatine Kinase CK-MB (CK-2) CK-MB (CK-2) Rel Index Troponin I NT-Pro-B Natriuret Pep Total Protein Albumin Globulin Albumin/Globulin Ratio Lipase Nasal Screen MRSA (PCR) COVID-19 PCR Discharge Plan Discharge Plan Patient Disposition: [facility] Other facility: [facility] Under care of provider: Dr. Carlos Discharge orders & Medications Follow up/Referrals: Ryan Fragoso MD [Primary Care Provider] - Discharge Health Status Multidrug resistant organism: No MDRO Precautions: [place] Diet/Activity/Treatments Diet: Nothing by Mouth Activity: bedrest Oxygen: as needed to keep O2 sat > 88% Visit Report/Discharge Packet Instructions: Premature Ventricular Beats, Arrhythmias, DI for Atrial Fibrillation, DI for Arrhythmias Discharge Data Primary Care Provider: Ryan Fragoso
--- NOTE | 2019-11-11 15:39 | PC.NURSE ---
Addendum entered by Bettina Cano R.N. 11/11/19 17:14: 1708 EMS arrived to transport pt to [facility], report called to BARRY Maher @ [phone]. Pt loaded on the gurney, Amiodarone and Heparin infusing as ordered, patient monitor connected, all pt belongings with pt, VSS for transport. No further pt contact at this time. Original Note: Evening shift note Took over care of pt at 1500, from BARRY Fountain. Amiodarone gtt infusing at 50.0 ml/hr, per telephone order by Dr. Kenney. Heparin gtt at 850 units/hr (17 ml/hr) per protocol. Afib RVR in the 120-130s all night with occasional increases as high as 160 both at rest and with activity. Alert and oriented x3. Pt denies chest pain, denies shortness of breath. SpO2 95-98% on RA. Lungs are clear but diminished in the bases bilaterally, Right side greater than left. Using urinal at side of bed. Dr. Kenney rounded on pt this AM and HR/BP trend reviewed, consulted with cardiology at [facility], plan is for pt to transfer there for cardioversion, pending pt approval. Pt pretty firm with his plan to go home this afternoon to care for his garden. Currently Dr. Kenney at pt bedside, discussing transfer, will await orders. Call light within reach, using appropriately to make needs known. Will continue to monitor.
[2019-11-11] MEDS: ACETAMINOPHEN 325 MG TABLET 650 MG PO (15:53)
== END 2019-11-11 17:05 | disposition short-term general hospital (02) | DRG 308 ==
LOC: ED 19:28 → ICU 20:26
PROVIDERS: Admitting Provider Family Medicine; Emergency Provider Emergency Medicine; Family Provider Family Medicine; PCP Family Medicine; Referring Provider Emergency Medicine; Visit Provider Family Medicine
DX: I48.0 Paroxysmal atrial fibrillation (principal); I50.31 Acute diastolic (congestive) heart failure; I49.3 Ventricular premature depolarization; E78.5 Hyperlipidemia, unspecified; I35.0 Nonrheumatic aortic (valve) stenosis; I45.10 Unspecified right bundle-branch block; R25.2 Cramp and spasm; Z11.59 Encounter for screening for other viral diseases; Z85.46 Personal history of malignant neoplasm of prostate
CPT/HCPCS: 36415; 71045; 80048; 80053; 81003; 82310; 82550; 83690; 83735; 83880; 84484; 85025; 85610; 85730; 87635; 87797; 93005; 93010; 96365; 96375; 99285; 99291; 99292; C9113; J0282; J1160; J1644; J1940